=== PATIENT | male | born 2000 | race Asian ===

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

== ENCOUNTER 2020-05-21 09:00 | Outpatient (CLI) | payer OTHER ==
[~2020-05-21 09:00] MED LIST: CONCERTA36 MG PO
== END 2020-05-21 19:37 | disposition home or self-care (01) ==
LOC: INF 09:00
PROVIDERS: ATTEND Internal Medicine
DX: Z23 Encounter for immunization (principal)
CPT/HCPCS: 96372

== ENCOUNTER → 2020-06-10 | Outpatient (CLI) | payer OTHER | LOC: INF | PROVIDERS: ATTEND Internal Medicine | DX: Z23 Encounter for immunization (principal) | CPT/HCPCS: 96372 ==

== ENCOUNTER 2021-12-08 20:18 | Emergency (ER) | payer OTHER ==
[~2021-12-08] VITALS: Ht 175.3 cm; Wt 134.7 kg
[2021-12-08 20:35] VITALS: BP 117/65; TEMP 99.1
== END 2021-12-09 00:09 | disposition home or self-care (01) ==
LOC: ED 20:18
DX: B34.9 Viral infection, unspecified (principal); Z20.822 Contact with and (suspected) exposure to COVID-19
CPT/HCPCS: 87502; 87635; 87651; 99282; U0003